=== PATIENT | female | born 1945 | race Caucasian/White ===

== ENCOUNTER 2021-03-24 12:55 | Inpatient (IN) | payer MEDICARE, BC ==
[~2021-03-24 12:55] MED LIST: ISOVUE-370 76%-LOCM 1 ML ONE
[2021-03-24 13:51] LABS: #Lymphocytes 1.5 thou/uL (1.20-3.40); #Monocytes 0.9 thou/uL (0.11-0.59); #Neutrophils 7.3 thou/uL (1.40-6.50); %Basophils 0.1 % (0.0-1.0); %Eosinophils 0.4 % (0.0-10.0); %Monocytes 9.3 % (0.0-10.0); %Neutrophils 75.2 % (42.0-75.0); Hemoglobin 13.2 g/dL (12.0-16.0); Mean Corpuscular HGB CONC 33.3 g/dL (32.0-36.0); Mean Corpuscular Hemoglobin 30.8 pg (27.0-31.0); Mean Corpuscular Volume 92.5 fL (78.0-98.0); Mean Platelet Volume 8.3 fL (7.4-10.4); Platelet Count 243 thou/uL (130-400); RBC Distribution Width 11.9 % (11.5-14.5); Red Blood Cell (RBC) Count 4.29 mill/uL (4.20-5.40); White Blood Cell (WBC) Count 9.6 thou/uL (4.8-10.8)
[2021-03-24 14:08] LABS: Anion Gap 16 mmol/L (10-20); BUN (Urea Nitrogen) 22 mg/dL (9.8-20.1); Calc. Creatinine Clearance 0 mL/min (70-130); Calcium 9.2 mg/dL (7.8-10.44); Carbon Dioxide 24 mmol/L (23-31); Chloride 102 mmol/L (98-107); Glucose 204 mg/dL (83-110); Potassium 3.6 mmol/L (3.5-5.1); Sodium 138 mmol/L (136-145)
[2021-03-24 15:41] LABS: Bacteria/HPF 4+ HPF (None Seen); Bilirubin Negative (Negative); Blood, Urine 1+ (Negative); Clarity Turbid (Clear); Glucose, Urine (Dipstick) 30 mg/dL (Negative); Ketone, Urine Negative (Negative); Leukocyte 250 Leu/uL (Negative); Nitrite Negative (Negative); Protein, Urine (Dipstick) 300 mg/dL (Neg-Trace); Specific Gravity, Urine 1.017 (1.002-1.036); Squamous Epithelial 0-3 HPF (0-3); Urobilinogen Normal mg/dL (Less than 2); WBC/HPF Greater than 50 HPF (0-3)
[2021-03-24] MEDS ORDERED: Azithromycin 500 MG VIAL ONE (15:42)
[2021-03-24] MEDS ORDERED: cefTRIAXone\\ROCEPHIN 2 GM VIAL ONE (15:43)
[2021-03-24 18:02] LABS: SARS-CoV-2 NAA Rapid Test Not Detected (NotDetected)
[2021-03-24] MEDS ORDERED: predniSONE 20 MG TAB PO SCH (18:45)
[2021-03-24 18:49] VITALS: BMI 24.3
[2021-03-24] MEDS: Ezetimibe 10 MG TAB PO SCH (20:49)
[2021-03-24] MEDS: Atorvastatin Calcium 20 MG TAB PO SCH (20:49)
[2021-03-24] MEDS ORDERED: Dextrose 50% Abboject 50 ML SYRINGE SLOW IVP PRN (21:46)
[2021-03-24] MEDS ORDERED: Dextrose 5% in Water 1,000 ML IV PRN (21:46)
[2021-03-24] MEDS: HumaLOG 300 UNITS/3 ML VIAL SC PRN (21:55)
[2021-03-25] MEDS: Levothyroxine Sodium 50 MCG TAB PO SCH (05:36)
[2021-03-25] MEDS: HumaLOG 300 UNITS/3 ML VIAL SC PRN ×3 (05:37→21:32)
[2021-03-25] MEDS: Glimepiride 2 MG TAB PO SCH (09:59)
[2021-03-25] MEDS: Aspirin 81 mg Enteric Coated Tablet PO SCH (09:59)
[2021-03-25] MEDS: Amlodipine 5 MG TAB PO SCH (09:59)
[2021-03-25] MEDS: Alogliptin 6.25 MG TAB PO SCH (09:59)
[2021-03-25] MEDS: Pioglitazone HCl 15 MG TAB PO SCH (09:59)
[2021-03-25] MEDS: predniSONE 20 MG TAB PO SCH (09:59)
[2021-03-25] MEDS ORDERED: guaiFENesin ER 600 MG TAB PO SCH (15:00)
[2021-03-25] MEDS ORDERED: cefTRIAXone\\ROCEPHIN 1 GM in Sodium Chloride 0.9% 100 ML IVPB SCH (16:00)
[2021-03-25] MEDS ORDERED: Azithromycin 500 MG in Sodium Chloride 0.9% 250 ML 250 ML IVPB SCH (16:00)
[2021-03-25] MEDS ORDERED: methylPREDNISolone Sod Succ 40 MG VIAL IVP SCH (18:15)
[2021-03-25] MEDS: Mometasone 200 MCG/Formoterol 5 MCG 120 PUFF INHALER INH SCH (19:39)
[2021-03-25] MEDS: Atorvastatin Calcium 20 MG TAB PO SCH (19:46)
[2021-03-25] MEDS: Ezetimibe 10 MG TAB PO SCH (19:46)
[2021-03-25] MEDS: guaiFENesin ER 600 MG TAB PO SCH (19:46)
[2021-03-26] MEDS: Levothyroxine Sodium 50 MCG TAB PO SCH (06:02)
[2021-03-26] MEDS: HumaLOG 300 UNITS/3 ML VIAL SC PRN (06:06)
[2021-03-26] MEDS: Mometasone 200 MCG/Formoterol 5 MCG 120 PUFF INHALER INH SCH (07:06)
[2021-03-26] MEDS: Pioglitazone HCl 15 MG TAB PO SCH (09:11)
[2021-03-26] MEDS: Alogliptin 6.25 MG TAB PO SCH (09:11)
[2021-03-26] MEDS: Amlodipine 5 MG TAB PO SCH (09:12)
[2021-03-26] MEDS: Aspirin 81 mg Enteric Coated Tablet PO SCH (09:12)
[2021-03-26] MEDS: Glimepiride 2 MG TAB PO SCH (09:12)
[2021-03-26] MEDS: predniSONE 20 MG TAB PO SCH (09:12)
[2021-03-26] MEDS: guaiFENesin ER 600 MG TAB PO SCH (09:13)
[2021-03-26 10:31] VITALS: BP 148/69; TEMP 98.7
== END 2021-03-26 11:30 | disposition home or self-care (01) | DRG 189 ==
LOC: ERS 12:55 → 2NO 16:19
PROVIDERS: ADMIT Internal Medicine; ATTEND Internal Medicine
DX: J96.01 Acute respiratory failure with hypoxia (principal); J44.0 Chronic obstructive pulmonary disease with (acute) lower respiratory infection; Z20.822 Contact with and (suspected) exposure to COVID-19; J20.9 Acute bronchitis, unspecified; R91.1 Solitary pulmonary nodule; E11.22 Type 2 diabetes mellitus with diabetic chronic kidney disease; N18.9 Chronic kidney disease, unspecified; I25.10 Atherosclerotic heart disease of native coronary artery without angina pectoris; E11.51 Type 2 diabetes mellitus with diabetic peripheral angiopathy without gangrene; F17.210 Nicotine dependence, cigarettes, uncomplicated; E03.9 Hypothyroidism, unspecified; Z88.5 Allergy status to narcotic agent; Z71.6 Tobacco abuse counseling; Z79.899 Other long term (current) drug therapy; Z79.84 Long term (current) use of oral hypoglycemic drugs; Z79.890 Hormone replacement therapy; Z79.82 Long term (current) use of aspirin
CPT/HCPCS: 36416; 71275; 80048; 81003; 81015; 84484; 85025; 93005; 94640; 96365; 96368; J0456; J0696; J2920; J3490; J7050; J7512; J7620; Q9966; U0002

== ENCOUNTER 2022-06-06 12:13 | Outpatient (CLI) | payer MEDICARE, BC | END 2022-06-06 12:14 | disposition home or self-care (01) | LOC: ULT 12:13 | PROVIDERS: ATTEND Internal Medicine Nephrology | DX: N18.30 Chronic kidney disease, stage 3 unspecified (principal); Q61.02 Congenital multiple renal cysts | CPT/HCPCS: 76770 ==

== ENCOUNTER 2022-07-28 13:40 | Outpatient (CLI) | payer MEDICARE, BC | END 2022-07-28 13:41 | disposition home or self-care (01) | LOC: CT 13:40 | PROVIDERS: ATTEND Internal Medicine Critical Care Medicine | DX: Z12.2 Encounter for screening for malignant neoplasm of respiratory organs (principal); J44.9 Chronic obstructive pulmonary disease, unspecified; R91.1 Solitary pulmonary nodule; I70.90 Unspecified atherosclerosis; N28.1 Cyst of kidney, acquired; N20.0 Calculus of kidney; F17.210 Nicotine dependence, cigarettes, uncomplicated | CPT/HCPCS: 71271 ==

== ENCOUNTER → 2022-08-09 | Outpatient (CLI) | payer MEDICARE, BC | LOC: PET 08:00 | PROVIDERS: ATTEND Internal Medicine Critical Care Medicine | DX: R91.1 Solitary pulmonary nodule (principal); M62.89 Other specified disorders of muscle; N83.8 Other noninflammatory disorders of ovary, fallopian tube and broad ligament | CPT/HCPCS: 78815; A9552 ==

== ENCOUNTER 2023-01-11 07:29 | Outpatient (CLI) | payer MEDICARE, BC ==
[2023-01-11] MEDS ORDERED: Iopamidol-370 76% 500 ML MDV (1 ML CHARGE) ONE (11:05)
== END 2023-01-11 07:30 | disposition home or self-care (01) ==
LOC: BICCT 07:29
PROVIDERS: ATTEND Internal Medicine Critical Care Medicine
DX: R91.8 Other nonspecific abnormal finding of lung field (principal)
CPT/HCPCS: 71260; 82565; Q9967

== ENCOUNTER 2023-02-26 08:42 | Emergency (ER) | payer MEDICARE, BC ==
[2023-02-26] MEDS ORDERED: Ibuprofen 200 MG TAB ONE (09:16)
[2023-02-26] MEDS ORDERED: Morphine 4 MG/ML VIAL ONE (09:17)
== END 2023-02-26 10:00 | disposition home or self-care (01) ==
LOC: ERS 08:42
DX: S42.012A Anterior displaced fracture of sternal end of left clavicle, initial encounter for closed fracture (principal); E03.9 Hypothyroidism, unspecified; I10 Essential (primary) hypertension; E11.9 Type 2 diabetes mellitus without complications; Z87.891 Personal history of nicotine dependence; X50.0XXA Overexertion from strenuous movement or load, initial encounter
CPT/HCPCS: 96372; J2270